=== PATIENT | female | born 1950 | race Two or more races ===

== ENCOUNTER 2020-10-10 10:08 | Day surgery (SDC) | payer OTHER | END 2020-10-10 16:30 | disposition home or self-care (01) | LOC: CIR.AMB 10:08 → AMB-ENDOS 13:30 → CIR.AMB 16:30 | PROVIDERS: ATTEND Surgery | DX: D12.2 Benign neoplasm of ascending colon (principal); D12.3 Benign neoplasm of transverse colon; D12.4 Benign neoplasm of descending colon; K64.4 Residual hemorrhoidal skin tags; Z20.822 Contact with and (suspected) exposure to COVID-19 ==

== ENCOUNTER → 2023-09-21 | Day surgery (SDC) | payer OTHER ==
[~2023-09-21] MED LIST: DIPHENHYDRAMINE HCL 50 MG/ML VIAL 1ML IV ONE; MIDAZOLAM HCL 2 MG/2 ML VIAL IV ONE; fentaNYL CITRATE 50 MCG/ML AMPUL IV PUSH ONE
== END | disposition home or self-care (01) ==
LOC: ADM 09-09 13:00 → CIR.AMB 07:48 → AMB-ENDOS 07:48 → CIR.AMB 13:00
PROVIDERS: ATTEND Surgery
DX: K63.5 Polyp of colon (principal); K57.30 Diverticulosis of large intestine without perforation or abscess without bleeding; K29.50 Unspecified chronic gastritis without bleeding; K44.9 Diaphragmatic hernia without obstruction or gangrene; Z91.040 Latex allergy status; Z91.09 Other allergy status, other than to drugs and biological substances